=== PATIENT | male | born 1990 | race Hispanic/Latino ===

== ENCOUNTER 2017-11-21 06:45 | Inpatient (IN) | payer OTHER ==
[2017-11-21] MEDS ORDERED: Sodium Chloride 0.9% 1,000 ML IV STA (07:48)
[2017-11-21 08:35] LABS: BASO % 0.5 % (0.0-2.0); EOS # 0.3 K/uL (0.0-0.7); EOS % 4.3 % (0.0-4.0); HEMOGLOBIN 14.1 g/dL (12.0-18.0); LYMPH # 0.9 K/uL (1.0-4.3); LYMPH % 13.3 % (20.0-40.0); MEAN CELL VOLUME 86.2 fl (80.0-94.0); MEAN CORPUSCULAR HEMOGLOBIN 29.1 pg (27.0-31.0); MEAN CORPUSCULAR HGB CONC 33.8 g/dL (33.0-37.0); MEAN PLATELET VOLUME 9.1 fl (7.2-11.7); MONO # 0.5 K/uL (0.0-0.8); MONO % 7.7 % (0.0-10.0); NEUT # 4.9 K/uL (1.8-7.0); NEUT % 74.2 % (50.0-75.0); RBC 4.84 Mil/uL (4.40-5.90); RED CELL DISTRIBUTION WIDTH 13.1 % (11.5-14.5); WHITE BLOOD COUNT 6.7 K/uL (4.8-10.8)
[2017-11-21 08:47] LABS: ALB/GLOB RATIO 1.5 (1.0-2.1); ALBUMIN 4.5 g/dL (3.5-5.0); ALT/SGPT 35 U/L (21-72); AST/SGOT 31 U/L (17-59); BLOOD UREA NITROGEN 27 mg/dl (9-20); CALCIUM 9.4 mg/dL (8.4-10.2); GFR AFRICAN-AMERICAN > 60; GFR NON-AFRICAN AMERICAN > 60; LIPASE 68 U/L (23-300)
--- NOTE | 2017-11-21 09:03 | ED PDOC ---
HPI: Abdomen Time Seen by Provider: 11/21/17 07:03 Chief Complaint (Nursing): Back Pain Chief Complaint (Provider): Abdominal Pain History Per: Patient History/Exam Limitations: no limitations Onset/Duration Of Symptoms: Days (x1) Additional Complaint(s): Jeramie Murray is a 27 y/o male with history of proctitis and gastritis who presents to the ED complaining of a deep pain in his lower right stomach with radiation to lower back, onset x1 day ago. Patient reports that the pain is a constant dull sensation but is exacerbated by deep breathing and walking. Patient denies taking any medication for the pain. He denies any urinary issues , fever, vomiting, chills cough, or loss of appetite. He takes Canasa to manage his proctitis. He has no other medical complaints. PMD: Micah Olivarez Past Medical History Reviewed: Historical Data, Nursing Documentation, Vital Signs Vital Signs: Last Vital Signs Temp 97.7 F 11/21/17 06:55 Pulse 64 11/21/17 06:55 Resp 14 11/21/17 06:55 BP 112/72 11/21/17 06:55 Pulse Ox 98 11/21/17 09:16 - Medical History PMH: Gastritis Other PMH: Proctitis - Surgical History Surgical History: No Surg Hx - Family History Family History: States: Unknown Family Hx - Social History Current smoker - smoking cessation education provided: No Alcohol: Social Drugs: Denies - Allergies Allergies/Adverse Reactions: Allergies Allergy/AdvReac Type Severity Reaction Status Date / Time No Known Allergies Allergy Verified 11/21/17 06:55 Review of Systems ROS Statement: Except As Marked, All Systems Reviewed And Found Negative Constitutional: Negative for: Fever, Chills Respiratory: Negative for: Cough Gastrointestinal: Negative for: Vomiting Genitourinary Male: Negative for: Dysuria, Frequency, Incontinence Neurological: Negative for: Other (loss of appetite) Physical Exam - Reviewed Nursing Documentation Reviewed: Yes Vital Signs Reviewed: Yes - Physical Exam Appears: Positive for: Non-toxic, No Acute Distress Head Exam: Positive for: ATRAUMATIC, NORMOCEPHALIC Skin: Positive for: Normal Color, Warm, Dry Eye Exam: Positive for: EOMI, Normal appearance, PERRL ENT: Positive for: Normal ENT Inspection Neck: Positive for: Normal, Painless ROM Cardiovascular/Chest: Positive for: Regular Rate, Rhythm. Negative for: Murmur Respiratory: Positive for: CNT, Normal Breath Sounds Gastrointestinal/Abdominal: Positive for: Tenderness (mild RUQ and RLQ tenderness) Back: Positive for: R CVA Tenderness (mild) Extremity: Positive for: Normal ROM Neurologic/Psych: Positive for: Alert, Oriented - Laboratory Results Result Diagrams: 11/21/17 08:20 11/21/17 08:20 - ECG O2 Sat by Pulse Oximetry: 98 (RA) Pulse Ox Interpretation: Normal Medical Decision Making Medical Decision Making: Time: 07:49 Initial Impression: Abdominal pain DDx including but not limited to early appendicitis, UTI, gall stones Initial Plan: --CT -Abdominal and Pelvis IV contrast only --CMP --Lipase --ED urine dipstick --CBC with differential --Sodium Chloride 0.9% 1000 ml IV 1000 mls/hr --Toradol 30 mg IV ----- Scribe Attestation: Documented by Justyn Licona, acting as a scribe for Lyssa Vaughn MD. Provider Scribe Attestation: All medical record entries made by the Scribe were at my direction and personally dictated by me. I have reviewed the chart and agree that the record accurately reflects my personal performance of the history, physical exam, medical decision making, and the department course for this patient. I have also personally directed, reviewed, and agree with the discharge instructions and disposition. Disposition - Clinical Impression Clinical Impression: Acute appendicitis - Patient ED Disposition Is Patient to be Admitted: Yes Doctor Will See Patient In The: Office Counseled Patient/Family Regarding: Diagnosis, Need For Followup - Disposition Disposition: Transfer of Care Disposition Time: 12:00 Condition: FAIR Instructions: Appendicitis in Adults Forms: [employer] (Khmer) - Pt Status Changed To: Hospital Disposition Of: Inpatient - Admit Certification Admit to Inpatient:: After my assessment, the patient will require hospitalization for at least two midnights. This is because of the severity of symptoms shown, intensity of services needed, and/or the medical risk in this patient being treated as an outpatient. - POA Present On Arrival: None
[2017-11-21] MEDS ORDERED: Iohexol 300 100 ML IJ ONE (11:11)
[2017-11-21] MEDS ORDERED: Piperacillin/Tazobact 3.375 GM in Sodium Chloride 0.9% 100 ML IVPB STA (12:06)
--- NOTE | 2017-11-21 12:14 | CT ---
PROCEDURE: CT Abdomen and Pelvis with contrast HISTORY: right sided abd pain and tenderness COMPARISON: None. TECHNIQUE: Contrast dose: 95 mL Omnipaque 300 Radiation dose: Total exam DLP = 849.2 mGy-cm. This CT exam was performed using one or more of the following dose reduction techniques: Automated exposure control, adjustment of the mA and/or kV according to patient size, and/or use of iterative reconstruction technique. FINDINGS: LOWER THORAX: Unremarkable. LIVER: Unremarkable. No gross lesion or ductal dilatation. GALLBLADDER AND BILE DUCTS: Unremarkable. PANCREAS: Unremarkable. No gross lesion or ductal dilatation. SPLEEN: Unremarkable. ADRENALS: Unremarkable. No mass. KIDNEYS AND URETERS: Unremarkable. No hydronephrosis. No solid mass. VASCULATURE: Unremarkable. No aortic aneurysm. BOWEL: Unremarkable. No obstruction. No gross mural thickening. APPENDIX: Dilated appendix measuring up to 9 mm with thick, enhancing chauhan and mild periappendiceal stranding. PERITONEUM: Unremarkable. No free fluid. No free air. LYMPH NODES: Unremarkable. No enlarged lymph nodes. BLADDER: Unremarkable. REPRODUCTIVE: Unremarkable. BONES: No acute fracture. Bone island in the right ileum. OTHER FINDINGS: None. IMPRESSION: Acute appendicitis. No evidence of rupture. Findings conveyed to Dr. Vaughn by Dr. Lee at 12:05 p.m. on 11/21/2017.
[2017-11-21] MEDS ORDERED: Piperacillin/Tazobact 3.375 gm Inj IVPB ONE (12:31)
--- NOTE | 2017-11-21 13:03 | CP.PCM.CON ---
History of Present Illness - History of Present Illness History of Present Illness: General surgery consult note for Dr. Alexandrea Lutz, PGY-2 Pt S & E at bedside at 1230 27M w/PMH sig for proctitis, gastritis consulted for RLQ abdominal pain x 1 day. Pt reports sudden onset of pain on day prior to evaluation, pain is deep/ dull, sometimes sharp with certain movements, radiates to low back, intermittent , alleviated by pain medications. Admits to poor appetite, last meal was evening prior to evaluation. Denies N & V, F & C, constipation or diarrhea or changes to urinary habits, ever having similar episodes prior. In ED- CT ab positive for acute, non perforated appendicitis with 9mm dilated appendix. Afebrile. No leukocytosis. PMH: procitis, gastritis PSH: Denies All: NKDA SH: Admits to social ETOH use 1-2 drinks weekly, denies tobacco or illicit drug use PMD: Sher FH: Non contributory Review of Systems - Review of Systems All systems: reviewed and no additional remarkable complaints except - Constitutional Constitutional: absent: Chills, Fever - EENT Ears: absent: Dizziness - Cardiovascular Cardiovascular: absent: Chest Pain - Gastrointestinal Gastrointestinal: Abdominal Pain. absent: Constipation, Diarrhea, Nausea, Vomiting - Genitourinary Genitourinary: absent: Change in Urinary Stream - Musculoskeletal Musculoskeletal: Back Pain. absent: Numbness, Tingling - Integumentary Integumentary: absent: Rash - Psychiatric Psychiatric: Change in Appetite (decreased) Past Patient History - Past Social History Alcohol: Social Drugs: Denies - GASTROINTESTINAL Hx Gastritis: Yes - PSYCHIATRIC Hx Substance Use: No - SURGICAL HISTORY Hx Surgeries: No Meds Allergies/Adverse Reactions: Allergies Allergy/AdvReac Type Severity Reaction Status Date / Time No Known Allergies Allergy Verified 11/21/17 06:55 - Medications Medications: Current Medications Piperacillin Sod/Tazobactam (Sod 3.375 gm/ Sodium Chloride) 100 mls @ 100 mls/ hr IVPB STAT STA PRN Reason: Protocol Stop: 11/21/17 13:05 Last Admin: 11/21/17 12:40 Dose: 100 mls/hr Physical Exam - Constitutional Appears: Non-toxic - Head Exam Head Exam: ATRAUMATIC, NORMAL INSPECTION, NORMOCEPHALIC - Eye Exam Eye Exam: EOMI, Normal appearance - ENT Exam ENT Exam: Mucous Membranes Moist, Normal Exam - Neck Exam Neck exam: Positive for: Full Rom, Normal Inspection - Respiratory Exam Respiratory Exam: Clear to Auscultation Bilateral, NORMAL BREATHING PATTERN - Cardiovascular Exam Cardiovascular Exam: REGULAR RHYTHM, +S1, +S2 - GI/Abdominal Exam GI & Abdominal Exam: Soft, Tenderness (miminal, over RLQ). absent: Distended, Firm, Guarding, Hernia Additional comments: positive obturator sign, negative psoas sign - Extremities Exam Extremities exam: Positive for: normal inspection - Back Exam Back exam: NORMAL INSPECTION - Neurological Exam Neurological exam: Alert, CN II-XII Intact, Normal Gait, Oriented x3 - Psychiatric Exam Psychiatric exam: Normal Affect, Normal Mood - Skin Skin Exam: Dry, Intact, Normal Color, Warm Results - Vital Signs Recent Vital Signs: Last Vital Signs Temp 97.7 F 11/21/17 06:55 Pulse 64 11/21/17 06:55 Resp 14 11/21/17 06:55 BP 112/72 11/21/17 06:55 Pulse Ox 98 11/21/17 12:37 - Labs Result Diagrams: 11/21/17 08:20 11/21/17 08:20 Labs: Laboratory Results - last 24 hr 11/21/17 11/21/17 08:20 08:20 WBC 6.7 RBC 4.84 Hgb 14.1 Hct 41.7 MCV 86.2 MCH 29.1 MCHC 33.8 RDW 13.1 Plt Count 195 MPV 9.1 Neut % (Auto) 74.2 Lymph % (Auto) 13.3 L [place] % (Auto) 7.7 Eos % (Auto) 4.3 H Baso % (Auto) 0.5 Neut # (Auto) 4.9 Lymph # (Auto) 0.9 L [place] # (Auto) 0.5 Eos # (Auto) 0.3 Baso # (Auto) 0.0 Sodium 140 Potassium 4.2 Chloride 103 Carbon Dioxide 26 Anion Gap 15 BUN 27 H Creatinine 1.1 Est GFR ( Amer) > 60 Est GFR (Non-Af Amer) > 60 Random Glucose 89 Calcium 9.4 Total Bilirubin 0.9 AST 31 ALT 35 Alkaline Phosphatase 48 Total Protein 7.6 Albumin 4.5 Globulin 3.0 Albumin/Globulin Ratio 1.5 Lipase 68 Assessment & Plan - Assessment and Plan (Free Text) Assessment: 27M w/PMH sig for proctitis, gastritis consulted for RLQ abdominal pain due to appendicitis Plan: NPO Pain control Anti-emetic PRN IVF IV Abx Conservative mgmt for now Will re-assess in AM for potential OR DW attending Nelda, PGY-2 - Date & Time Date: 11/21/17 Time: 12:30
[2017-11-21] MEDS ORDERED: Piperacillin/Tazobact 3.375 GM in Sodium Chloride 0.9% 100 ML IVPB SCH (21:00)
--- NOTE | 2017-11-21 21:18 | CP.PCM.HP ---
History of Present Illness - History of Present Illness History of Present Illness: 27 yo with hx of Ulcerative Colitis admitted for R side lower quadrant abdominal pain with assoc nausea and decreased appetite. CT scan shows Acute appendicitis Present on Admission - Present on Admission Any Indicators Present on Admission: No Past Patient History - Past Medical History & Family History Past Medical History?: Yes - Past Social History Smoking Status: Never Smoked - CARDIAC Hx Cardiac Disorders: No - PULMONARY Hx Respiratory Disorders: No - NEUROLOGICAL Hx Neurological Disorder: No - HEENT Hx HEENT Problems: No - RENAL Hx Chronic Kidney Disease: No - ENDOCRINE/METABOLIC Hx Endocrine Disorders: No - HEMATOLOGICAL/ONCOLOGICAL Hx Blood Disorders: No - INTEGUMENTARY Hx Dermatological Problems: No - MUSCULOSKELETAL/RHEUMATOLOGICAL Hx Musculoskeletal Disorders: No - GASTROINTESTINAL Hx Gastritis: Yes Other/Comment: hx of colonoscopy and endoscopy - GENITOURINARY/GYNECOLOGICAL Hx Genitourinary Disorders: No - PSYCHIATRIC Hx Substance Use: No - SURGICAL HISTORY Hx Surgeries: No - ANESTHESIA Hx Anesthesia: Yes Hx Anesthesia Reactions: No Hx Malignant Hyperthermia: No Has any member of the family had a problem w/ anesthesia?: No Meds Allergies/Adverse Reactions: Allergies Allergy/AdvReac Type Severity Reaction Status Date / Time No Known Allergies Allergy Verified 11/21/17 06:55 Physical Exam - Respiratory Exam Respiratory Exam: NORMAL BREATHING PATTERN - Cardiovascular Exam Cardiovascular Exam: REGULAR RHYTHM - GI/Abdominal Exam GI & Abdominal Exam: Soft Results - Vital Signs Recent Vital Signs: Last Vital Signs Temp 97.5 F L 11/21/17 18:56 Pulse 56 L 11/21/17 18:56 Resp 20 11/21/17 18:56 BP 114/70 11/21/17 18:56 Pulse Ox 97 11/21/17 18:38 - Labs Result Diagrams: 11/21/17 08:20 11/21/17 08:20 Labs: Laboratory Results - last 24 hr 11/21/17 11/21/17 08:20 08:20 WBC 6.7 RBC 4.84 Hgb 14.1 Hct 41.7 MCV 86.2 MCH 29.1 MCHC 33.8 RDW 13.1 Plt Count 195 MPV 9.1 Neut % (Auto) 74.2 Lymph % (Auto) 13.3 L [place] % (Auto) 7.7 Eos % (Auto) 4.3 H Baso % (Auto) 0.5 Neut # (Auto) 4.9 Lymph # (Auto) 0.9 L [place] # (Auto) 0.5 Eos # (Auto) 0.3 Baso # (Auto) 0.0 Sodium 140 Potassium 4.2 Chloride 103 Carbon Dioxide 26 Anion Gap 15 BUN 27 H Creatinine 1.1 Est GFR ( Amer) > 60 Est GFR (Non-Af Amer) > 60 Random Glucose 89 Calcium 9.4 Total Bilirubin 0.9 AST 31 ALT 35 Alkaline Phosphatase 48 Total Protein 7.6 Albumin 4.5 Globulin 3.0 Albumin/Globulin Ratio 1.5 Lipase 68 Assessment & Plan - Assessment and Plan (Free Text) Assessment: R lower quadrant pain Acute Appendicitis NPO IVF ABX Surgery GI - Date & Time Date: 11/21/17 Time: 22:22
[2017-11-22 06:53] LABS: ALB/GLOB RATIO 1.4 (1.0-2.1); ALT/SGPT 25 U/L (21-72); AST/SGOT 24 U/L (17-59); BLOOD UREA NITROGEN 23 mg/dl (9-20); CALCIUM 9.3 mg/dL (8.4-10.2); GFR AFRICAN-AMERICAN > 60; GFR NON-AFRICAN AMERICAN > 60
[2017-11-22 06:58] LABS: PROTHROMBIN TIME 11.3 Seconds (9.8-13.1)
[2017-11-22 06:59] LABS: PARTIAL THROMBOPLASTIN TIME 25.6 Seconds (25.6-37.1)
[2017-11-22 07:33] LABS: BASO % 0.5 % (0.0-2.0); EOS # 0.3 K/uL (0.0-0.7); EOS % 4.5 % (0.0-4.0); HEMOGLOBIN 14.4 g/dL (12.0-18.0); LYMPH % 15.7 % (20.0-40.0); MEAN CELL VOLUME 86.2 fl (80.0-94.0); MEAN CORPUSCULAR HEMOGLOBIN 29.5 pg (27.0-31.0); MEAN CORPUSCULAR HGB CONC 34.2 g/dL (33.0-37.0); MEAN PLATELET VOLUME 8.4 fl (7.2-11.7); MONO # 0.5 K/uL (0.0-0.8); MONO % 7.2 % (0.0-10.0); NEUT # 4.8 K/uL (1.8-7.0); NEUT % 72.1 % (50.0-75.0); NRBC % 0.1 % (0.0-0.0); RBC 4.87 Mil/uL (4.40-5.90); RED CELL DISTRIBUTION WIDTH 13.4 % (11.5-14.5); WHITE BLOOD COUNT 6.6 K/uL (4.8-10.8)
--- NOTE | 2017-11-22 07:39 | CP.PCM.PN ---
Subjective - Date & Time of Evaluation Date of Evaluation: 11/22/17 Time of Evaluation: 07:36 - Subjective Subjective: General Surgery - DR. Mcdonald Pt S&E. Pt complains of worsening RLQ abdominal pain this morning around 5am. He received pain medication at that time and experienced some relief. Pt states he took small sips of water last night but has no appetite to eat. He denies any fevers/chills, nausea or vomiting. Objective - Vital Signs/Intake and Output Vital Signs (last 24 hours): Temp Pulse Resp BP Pulse Ox 97.6 F 59 L 18 101/58 L 98 11/22/17 00:01 11/22/17 00:01 11/22/17 00:01 11/22/17 00:01 11/22/17 00:01 - Medications Medications: Current Medications Piperacillin Sod/Tazobactam (Sod 3.375 gm/ Sodium Chloride) 100 mls @ 100 mls/ hr IVPB Q12 MOO PRN Reason: Protocol Last Admin: 11/21/17 20:46 Dose: 100 mls/hr Dextrose/Sodium Chloride (Dextrose 5%-0.45% Ns 500 Ml) 500 mls @ 125 mls/hr IV .[facility]H [facility] Stop: 11/22/17 13:43 Last Admin: 11/22/17 05:04 Dose: 125 mls/hr Ketorolac Tromethamine (Toradol) 30 mg IVP Q6 PRN PRN Reason: Pain, moderate (4-7) Last Admin: 11/22/17 05:02 Dose: 30 mg Ondansetron HCl (Zofran Inj) 4 mg IVP Q4 PRN PRN Reason: Nausea/Vomiting Pantoprazole Sodium (Protonix Inj) 40 mg IVP DAILY [facility] Last Admin: 11/21/17 15:05 Dose: 40 mg - Labs Labs: 11/21/17 08:20 11/22/17 06:20 PT 11.3 Seconds (9.8-13.1) 11/22/17 06:20 INR 1.0 (0.9-1.2) 11/22/17 06:20 APTT 25.6 Seconds (25.6-37.1) 11/22/17 06:20 - Constitutional Appears: No Acute Distress - Head Exam Head Exam: ATRAUMATIC, NORMAL INSPECTION, NORMOCEPHALIC - Eye Exam Eye Exam: Normal appearance - ENT Exam ENT Exam: Mucous Membranes Moist - Respiratory Exam Respiratory Exam: NORMAL BREATHING PATTERN. absent: Respiratory Distress - Cardiovascular Exam Cardiovascular Exam: REGULAR RHYTHM - GI/Abdominal Exam GI & Abdominal Exam: Soft. absent: Distended, Firm, Tenderness, Rebound - Neurological Exam Neurological Exam: Alert, Oriented x3 - Psychiatric Exam Psychiatric exam: Normal Affect, Normal Mood - Skin Skin Exam: Dry, Intact Assessment and Plan - Assessment and Plan (Free Text) Assessment: 27yo M w/ acute appendicitis -Worsening pain w/ conservative tx -Will need to transfer to [facility] for surgery today d/t [facility] OR currently shut-down for repairs -Will DW Primary -Keep NPO -Continue IV Abx, IVF, Pain control PRN LASHONDA Vasquez PGY4
[2017-11-22] MEDS ORDERED: Piperacillin/Tazobact 3.375 GM in Sodium Chloride 0.9% 100 ML IVPB SCH ×2 (07:45→09:00)
[2017-11-22 08:01] VITALS: BP 120/72; PULSE 62; RESP 19; TEMP 98.1; O2SAT 99
== END 2017-11-22 11:49 | disposition short-term general hospital (02) | DRG 394 ==
LOC: H.ER 06:45 → H.ERHOLD 12:35 → H.MEDSURG1 17:58
PROVIDERS: ADMIT Family Medicine Geriatric Medicine; ATTEND Family Medicine Geriatric Medicine
DX: K35.80 Unspecified acute appendicitis (principal); K51.90 Ulcerative colitis, unspecified, without complications; K62.89 Other specified diseases of anus and rectum; K29.70 Gastritis, unspecified, without bleeding; Z53.8 Procedure and treatment not carried out for other reasons